=== PATIENT | female | born 1960 | race Caucasian/White ===

== ENCOUNTER 2017-03-09 09:21 | Emergency (ER) | payer OTHER ==
[~2017-03-09] VITALS: Ht 162.6 cm; Wt 90.0 kg
[~2017-03-09 09:21] MED LIST: ALEVE220 M1 OR; AMLODIPINE2.5 MG PO; AMLODIPINE5 MG PO; ASPIRIN81 MG; AUGMENTIN875TAB PO; BACTRIM DS1 TAB PO; CLONIDINE0.1 MG PO; DEPO-MEDROL80 MG/ML IM; ESTRACE VAG0.1 MG/GM VA; FISH OIL1000 MG PO; FISH OIL500 MG; HYDROCHLOROT12.5 MG PO; HYDROCORTISO2.51 EX; HYDROXYZ HCL25 MG PO; HYZAAR1 TAB PO; LIPOFLAVONOID; LOSARTAN POT50 MG PO; LOTREL 5/101 CAP; LOTREL1 CA1 PO; LOTREL1 CA2 PO; PREDNISONE10 MG PO; QUININE SULF; ROCEPHIN 1 GM1 GM IM; TESSALON200 MG PO; ZPAK PO; [UNRECOGNIZED DRUG - OTHER]
[2017-03-09 11:54] VITALS: BP 133/71
== END 2017-03-09 11:54 | disposition home or self-care (01) | DRG 552 ==
LOC: ED 09:21
DX: S13.9XXA Sprain of joints and ligaments of unspecified parts of neck, initial encounter (principal); I10 Essential (primary) hypertension; S43.401A Unspecified sprain of right shoulder joint, initial encounter; S63.501A Unspecified sprain of right wrist, initial encounter; V44.5XXA Car driver injured in collision with heavy transport vehicle or bus in traffic accident, initial encounter

== ENCOUNTER 2021-06-25 07:01 | Day surgery (SDC) | payer BC ==
[~2021-06-25 07:01] MED LIST changes: +ALENDRONATE5 MG PO; +ASPIRIN81 MG PO; +COZAAR100 MG PO; +CRESTOR5 M1 PO; +DOXYCYCL HYC100 MG PO; +ELDERBERRY PO; +GABAPENTIN100 MG PO; +NORVASC PO; +VITAMIN D1000 UNIT PO; +[UNRECOGNIZED DRUG - OTHER] PO; +[UNRECOGNIZED DRUG - OTHER] PO
[2021-06-25] MEDS ORDERED: [UNRECOGNIZED DRUG - OTHER] PO (07:24)
[2021-06-25 09:12] VITALS: BP 105/68
== END 2021-06-25 09:00 | disposition home or self-care (01) | DRG 951 ==
LOC: ENDO 07:01
PROVIDERS: ATTEND Surgery
PROC: 0DJD8ZZ Inspection of Lower Intestinal Tract, Via Natural or Artificial Opening Endoscopic (ICD-10-PCS; principal; 2021-06-25)
DX: Z12.11 Encounter for screening for malignant neoplasm of colon (principal); I10 Essential (primary) hypertension; E78.5 Hyperlipidemia, unspecified